=== PATIENT | male | born 1990 | race Caucasian/White ===

== ENCOUNTER 2021-07-09 07:00 | Day surgery (SDC) | payer BC ==
[~2021-07-09 07:00] MED LIST: Lactated Ringers 1,000 ML IV SCH
[2021-07-09] MEDS ORDERED: Propofol 200 MG/20 ML SDV ONE (08:10)
[2021-07-09] MEDS ORDERED: fentaNYL 100 MCG/2 ML SDV ONE (08:39)
== END 2021-07-09 10:56 | disposition home or self-care (01) ==
LOC: VM.SDS 07:00
PROVIDERS: ATTEND Student in an Organized Health Care Education/Training Program
DX: K62.1 Rectal polyp (principal); K62.89 Other specified diseases of anus and rectum; E66.9 Obesity, unspecified; H61.23 Impacted cerumen, bilateral; K59.01 Slow transit constipation; Z68.33 Body mass index [BMI] 33.0-33.9, adult; J45.909 Unspecified asthma, uncomplicated
CPT/HCPCS: 00811; J2704; J3010; J7120